=== PATIENT | female | born 1990 | race American Indian/Alaskan Native ===

== ENCOUNTER 2018-07-15 14:02 | Emergency (ER) | payer OTHER, MEDICAID ==
[2018-07-15 14:12] VITALS: BP 126/85; PULSE 74; RESP 18; TEMP 98.7; O2SAT 98
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
== END 2018-07-15 15:32 | disposition home or self-care (01) ==
LOC: C.ER 14:02
DX: S16.1XXA Strain of muscle, fascia and tendon at neck level, initial encounter (principal); S39.012A Strain of muscle, fascia and tendon of lower back, initial encounter; V49.9XXA Car occupant (driver) (passenger) injured in unspecified traffic accident, initial encounter